=== PATIENT | female | born 1940 | race Caucasian/White ===

== ENCOUNTER 2020-06-18 16:29 | Emergency (ER) | payer OTHER, MEDICARE ==
[2020-06-18 16:46] VITALS: TEMP 98.2; BMI 22.6
[2020-06-18] MEDS ORDERED: diphenhydrAMINE HCL 25 MG CAPSULE (FP) PO ONE ×3 (17:14→17:22)
[2020-06-18] MEDS ORDERED: methylPREDNISolone NA SUCC 125 MG/2 ML VIAL IVPUSH ONE (17:14)
[2020-06-18] MEDS ORDERED: methylPREDNISolone NA SUCC 125 MG/2 ML VIAL ONE (17:19)
[2020-06-18 18:42] VITALS: BP 130/84; PULSE 86
== END 2020-06-18 18:46 | disposition home or self-care (01) ==
LOC: JERFT 16:29
PROC: 3E033NZ Introduction of Analgesics, Hypnotics, Sedatives into Peripheral Vein, Percutaneous Approach (ICD-10-PCS; principal; 2020-06-18)
DX: T78.40XA Allergy, unspecified, initial encounter (principal)
CPT/HCPCS: 99284-25

== ENCOUNTER 2020-08-24 04:42 | Day surgery (SDC) | payer OTHER, MEDICARE ==
[2020-08-24 06:48] VITALS: BMI 22.3
[2020-08-24] MEDS ORDERED: HYDROmorphone HCl 2 MG/ML VIAL ONE (07:03)
[2020-08-24] MEDS ORDERED: MIDAZOLAM HCL 2 MG/2 ML SINGLE DOSE VIAL ONE ×3 (07:03→07:12)
[2020-08-24] MEDS ORDERED: PROPOFOL 20 ML ONE (07:04)
[2020-08-24] MEDS ORDERED: ROCURONIUM BROMIDE 50 MG/5 ML SYRINGE ONE (07:04)
[2020-08-24] MEDS ORDERED: ceFAZolin SODIUM 1 GM VIAL IVPB ONE (08:15)
[2020-08-24] MEDS ORDERED: ONDANSETRON 4 MG/2 ML VIAL IVPUSH PRN ×2 (08:47→10:18)
[2020-08-24] MEDS ORDERED: oxyCODONE HCL 5 MG TABLET PO PRN ×2 (08:47)
[2020-08-24] MEDS ORDERED: ACETAMINOPHEN 1000 MG/100 ML VIAL (NON FORMULARY) IVPB ONE (08:47)
[2020-08-24] MEDS ORDERED: LACTATED RINGERS SOLUTION 1,000 ML IV SCH (09:00)
[2020-08-24] MEDS: ACETAMINOPHEN 325 MG TABLET (FP) PO SCH ×3 (09:00→21:17)
[2020-08-24] MEDS ORDERED: IBUPROFEN 800 MG/8 ML IJ IVPB PRN (10:18)
[2020-08-24] MEDS ORDERED: BISACODYL 5 MG TABLET.DR (FP) PO ONE (10:18)
[2020-08-24] MEDS ORDERED: DOCUSATE SODIUM 100 MG CAPSULE (FP) PO PRN (10:18)
[2020-08-24] MEDS ORDERED: SIMETHICONE 80 MG TAB.CHEW (FP) PO PRN (10:18)
[2020-08-24] MEDS ORDERED: LACTATED RINGERS SOLUTION 1,000 ML/1,000 ML INFUS.BAG IV SCH (10:30)
[2020-08-24] MEDS ORDERED: ACETAMINOPHEN INJECTION 100 ML IVPB ONE (11:07)
[2020-08-24] MEDS ORDERED: hydrALAZINE HCL 20 MG/ML VIAL IVPUSH ONE (11:21)
[2020-08-24 12:25] LABS: BASO % 0.4 % (0-2.0); EOS % 1.2 % (0-4.5); LYMPH % 15.7 % (8-40); MCH 28.8 pg (25.7-33.7); MCHC 33.3 g/dl (32.0-36.0); MEAN CELL VOLUME 86.3 fl (80-96); MEAN PLT VOLUME 8.3 fl (7.5-11.1); MONO % 4.2 % (3.8-10.2); NEUT % 78.5 % (42.8-82.8); PLATELET COUNT 275 K/MM3 (134-434); RBC 4.52 M/mm3 (3.60-5.2); RDW 15.1 % (11.6-15.6); WHITE BLOOD COUNT 9.5 K/mm3 (4.0-10.0)
[2020-08-24] MEDS ORDERED: CEFAZOLIN 1 GM/D5W 1 GM/50 ML BAG IVPB SCH (16:00)
[2020-08-24] MEDS: CEFAZOLIN 1 GM/D5W 1 GM/50 ML BAG IVPB SCH ×2 (16:30→23:48)
[2020-08-24 19:18] LABS: HEMOGLOBIN 12.4 GM/dL (10.7-15.3); MCH 28.9 pg (25.7-33.7); MCHC 33.6 g/dl (32.0-36.0); MEAN CELL VOLUME 86.1 fl (80-96); MEAN PLT VOLUME 8.4 fl (7.5-11.1); PLATELET COUNT 263 K/MM3 (134-434); RBC 4.29 M/mm3 (3.60-5.2); RDW 14.8 % (11.6-15.6); WHITE BLOOD COUNT 9.9 K/mm3 (4.0-10.0)
[2020-08-24 19:46] LABS: CALCIUM 8.8 mg/dL (8.5-10.1)
[2020-08-24 19:47] LABS: BLOOD UREA NITROGEN 14.7 mg/dL (7-18)
[2020-08-24 19:50] LABS: CREATININE 0.9 mg/dL (0.55-1.3)
[2020-08-24] MEDS ORDERED: ATORVASTATIN CA 10 MG TABLET (FP) PO SCH (22:00)
[2020-08-25] MEDS: ACETAMINOPHEN 325 MG TABLET (FP) PO SCH ×3 (03:29→09:46)
[2020-08-25] MEDS ORDERED: LEVOTHYROXINE NA 100 MCG TABLET (FP) PO SCH (07:00)
[2020-08-25] MEDS: CEFAZOLIN 1 GM/D5W 1 GM/50 ML BAG IVPB SCH (08:02)
[2020-08-25 08:10] LABS: CALCIUM 8.9 mg/dL (8.5-10.1)
[2020-08-25 08:14] LABS: CREATININE 0.7 mg/dL (0.55-1.3)
[2020-08-25 08:24] LABS: HEMATOCRIT 36.1 % (32.4-45.2); HEMOGLOBIN 11.9 GM/dL (10.7-15.3); MCH 28.9 pg (25.7-33.7); MCHC 32.9 g/dl (32.0-36.0); MEAN CELL VOLUME 87.7 fl (80-96); MEAN PLT VOLUME 8.3 fl (7.5-11.1); PLATELET COUNT 234 K/MM3 (134-434); RBC 4.11 M/mm3 (3.60-5.2); RDW 14.8 % (11.6-15.6); WHITE BLOOD COUNT 10.2 K/mm3 (4.0-10.0)
[2020-08-25] MEDS ORDERED: ENOXAPARIN NA (PORCINE) 40 MG/0.4 ML DISP.SYRIN SQ SCH (10:00)
[2020-08-25] MEDS ORDERED: FENOFIBRIC ACID 135 MG CAP PO SCH (10:00)
[2020-08-25 13:46] VITALS: BP 144/71; PULSE 71; TEMP 98.2
== END 2020-08-25 13:45 | disposition home or self-care (01) ==
LOC: JASUSAT 04:42 → JASU-SURG 04:42 → J3W 13:48 → JASUSAT 08-25 13:45
PROVIDERS: ATTEND Obstetrics & Gynecology
PROC: 8E0W4CZ Robotic Assisted Procedure of Trunk Region, Percutaneous Endoscopic Approach (ICD-10-PCS; 2020-08-24)
PROC: 0UT9FZZ Resection of Uterus, Via Natural or Artificial Opening With Percutaneous Endoscopic Assistance (ICD-10-PCS; principal; 2020-08-24 07:30)
PROC: 0UT7FZZ Resection of Bilateral Fallopian Tubes, Via Natural or Artificial Opening With Percutaneous Endoscopic Assistance (ICD-10-PCS; 2020-08-24 07:30)
DX: N81.4 Uterovaginal prolapse, unspecified (principal); D25.1 Intramural leiomyoma of uterus; N72 Inflammatory disease of cervix uteri; N84.1 Polyp of cervix uteri
CPT/HCPCS: 58552; S2900; 36415; 80048; 85025; 85027; 86850; 86900; 86901; 86922; 88302-TC; 88307-TC; 94010; 94760; J0131

== ENCOUNTER 2023-08-06 12:02 | Observation (INO) | payer OTHER ==
[2023-08-06 13:19] LABS: BASO % 0.6 % (0-2.0); HEMATOCRIT 44.4 % (32.4-45.2); LYMPH % 28.1 % (8-40); MCH 29.8 pg (25.7-33.7); MCHC 33.9 g/dl (32.0-36.0); MEAN PLT VOLUME 7.7 fl (7.5-11.1); MONO % 12.6 % (3.8-10.2); NEUT % 57.7 % (42.8-82.8); PLATELET COUNT 277 10^3/uL (134-434); RBC 5.04 M/mm3 (3.60-5.2); WHITE BLOOD COUNT 6.9 K/mm3 (4.0-10.0)
[2023-08-06 13:26] LABS: INR 1.16 (0.83-1.09); PROTHROMBIN TIME (PATIENT) 13.1 SEC (9.7-13.0)
[2023-08-06 13:29] LABS: ACTIVATED PTT 33.4 SECONDS (25.2-36.5)
[2023-08-06 13:38] LABS: POTASSIUM 4.9 mmol/L (3.5-5.1)
[2023-08-06 13:40] LABS: ALBUMIN 3.4 g/dl (3.4-5.0); CALCIUM 9.4 mg/dL (8.5-10.1)
[2023-08-06 13:41] LABS: BLOOD UREA NITROGEN 13.8 mg/dL (7-18)
[2023-08-06 13:43] LABS: CREATININE 0.8 mg/dL (0.55-1.3)
[2023-08-06 13:45] LABS: BILIRUBIN,TOTAL 1.8 mg/dL (0.2-1); TOT PROT 7.4 g/dl (6.4-8.2)
[2023-08-06] MEDS ORDERED: METOPROLOL TARTRATE 5 MG/5 ML VIAL ONE (13:54)
[2023-08-06] MEDS: METOPROLOL TARTRATE 5 MG/5 ML VIAL IVPUSH ONE ×2 (14:05→16:45)
[2023-08-06] MEDS: SODIUM CHLORIDE 0.9% 500 ML INFUS.BAG IV ONE (14:08)
[2023-08-06] MEDS ORDERED: METOPROLOL TARTRATE 25 MG TABLET (FP) ONE (14:43)
[2023-08-06] MEDS: METOPROLOL TARTRATE 25 MG TABLET (FP) PO ONE (14:52)
[2023-08-06] MEDS: ALPRAZolam 0.25 MG TABLET PO PRN (19:05)
[2023-08-06] MEDS: ATORVASTATIN CA 10 MG TABLET (FP) PO SCH (21:12)
[2023-08-06] MEDS: METOPROLOL TARTRATE 50 MG TABLET (FP) PO SCH (21:12)
[2023-08-06] MEDS: APIXABAN 2.5 MG TABLET PO SCH (21:13)
[2023-08-06 22:52] VITALS: BMI 24.5
[2023-08-07] MEDS: guaiFENesin 200 MG/10 ML 10 ML UNIT-DOSE CUPS PO PRN (05:41)
[2023-08-07] MEDS: LEVOTHYROXINE NA 50 MCG TABLET (FP) PO SCH (06:06)
[2023-08-07] MEDS ORDERED: LEVOTHYROXINE NA 75 MCG TABLET (FP) PO SCH (07:00)
[2023-08-07 08:59] LABS: BASO % 0.5 % (0-2.0); HEMATOCRIT 42.8 % (32.4-45.2); HEMOGLOBIN 14.5 GM/dL (10.7-15.3); LYMPH % 37.1 % (8-40); MCH 29.9 pg (25.7-33.7); MEAN CELL VOLUME 87.9 fl (80-96); MONO % 10.4 % (3.8-10.2); PLATELET COUNT 237 10^3/uL (134-434); RBC 4.86 M/mm3 (3.60-5.2); RDW 15.4 % (11.6-15.6); WHITE BLOOD COUNT 7.4 K/mm3 (4.0-10.0)
[2023-08-07 09:20] LABS: POTASSIUM 3.8 mmol/L (3.5-5.1)
[2023-08-07 09:23] LABS: ALBUMIN 3.4 g/dl (3.4-5.0); CALCIUM 9.3 mg/dL (8.5-10.1)
[2023-08-07 09:24] LABS: BLOOD UREA NITROGEN 12.4 mg/dL (7-18); MAGNESIUM 1.9 mg/dL (1.8-2.4)
[2023-08-07 09:27] LABS: CREATININE 0.7 mg/dL (0.55-1.3)
[2023-08-07 09:28] LABS: BILIRUBIN,TOTAL 2.1 mg/dL (0.2-1); TOT PROT 6.5 g/dl (6.4-8.2)
[2023-08-07 11:04] LABS: BILIRUBIN,DIRECT 0.4 mg/dL (0.0-0.2)
[2023-08-07] MEDS: FENOFIBRIC ACID 135 MG CAP PO SCH (14:50)
[2023-08-07] MEDS: METOPROLOL TARTRATE 5 MG/5 ML VIAL IVPUSH PRN (15:15)
[2023-08-08 08:27] LABS: BASO % 0.4 % (0-2.0); EOS % 2.7 % (0-4.5); HEMATOCRIT 42.6 % (32.4-45.2); HEMOGLOBIN 14.1 GM/dL (10.7-15.3); MCH 29.7 pg (25.7-33.7); MCHC 33.1 g/dl (32.0-36.0); MEAN CELL VOLUME 89.5 fl (80-96); MONO % 10.1 % (3.8-10.2); NEUT % 43.8 % (42.8-82.8); PLATELET COUNT 247 10^3/uL (134-434); RBC 4.75 M/mm3 (3.60-5.2); RDW 15.1 % (11.6-15.6); WHITE BLOOD COUNT 7.9 K/mm3 (4.0-10.0)
[2023-08-08 08:29] LABS: POTASSIUM 3.9 mmol/L (3.5-5.1)
[2023-08-08 08:41] LABS: CALCIUM 9.2 mg/dL (8.5-10.1)
[2023-08-08 08:42] LABS: MAGNESIUM 2.1 mg/dL (1.8-2.4)
[2023-08-08 08:44] LABS: BLOOD UREA NITROGEN 12.9 mg/dL (7-18); PHOSPHOROUS 3.1 mg/dL (2.5-4.9)
[2023-08-08 08:45] LABS: ALBUMIN 3.4 g/dl (3.4-5.0); BILIRUBIN,TOTAL 2.2 mg/dL (0.2-1); CREATININE 0.7 mg/dL (0.55-1.3); TOT PROT 6.8 g/dl (6.4-8.2)
[2023-08-09 06:36] LABS: BASO % 0.5 % (0-2.0); EOS % 3.2 % (0-4.5); HEMOGLOBIN 14.6 GM/dL (10.7-15.3); LYMPH % 44.6 % (8-40); MCH 30.6 pg (25.7-33.7); MCHC 34.8 g/dl (32.0-36.0); MEAN CELL VOLUME 87.8 fl (80-96); MEAN PLT VOLUME 7.8 fl (7.5-11.1); MONO % 10.8 % (3.8-10.2); NEUT % 40.9 % (42.8-82.8); PLATELET COUNT 240 10^3/uL (134-434); RBC 4.79 M/mm3 (3.60-5.2); RDW 14.6 % (11.6-15.6); WHITE BLOOD COUNT 7.4 K/mm3 (4.0-10.0)
[2023-08-09 06:47] LABS: POTASSIUM 4.2 mmol/L (3.5-5.1)
[2023-08-09 06:49] LABS: CALCIUM 9.6 mg/dL (8.5-10.1)
[2023-08-09 06:50] LABS: ALBUMIN 3.4 g/dl (3.4-5.0); BLOOD UREA NITROGEN 11.7 mg/dL (7-18); MAGNESIUM 1.9 mg/dL (1.8-2.4)
[2023-08-09 06:52] LABS: PHOSPHOROUS 3.2 mg/dL (2.5-4.9)
[2023-08-09 06:53] LABS: CREATININE 0.8 mg/dL (0.55-1.3)
[2023-08-09 06:54] LABS: BILIRUBIN,TOTAL 1.7 mg/dL (0.2-1); TOT PROT 6.8 g/dl (6.4-8.2)
[2023-08-09] MEDS: ALPRAZolam 0.25 MG TABLET PO PRN (22:29)
[2023-08-10 06:40] LABS: BASO % 0.6 % (0-2.0); EOS % 3.1 % (0-4.5); HEMATOCRIT 40.2 % (32.4-45.2); HEMOGLOBIN 13.9 GM/dL (10.7-15.3); LYMPH % 46.1 % (8-40); MCH 30.4 pg (25.7-33.7); MCHC 34.6 g/dl (32.0-36.0); MEAN CELL VOLUME 87.8 fl (80-96); MEAN PLT VOLUME 7.9 fl (7.5-11.1); MONO % 10.3 % (3.8-10.2); NEUT % 39.9 % (42.8-82.8); PLATELET COUNT 239 10^3/uL (134-434); RBC 4.57 M/mm3 (3.60-5.2); RDW 14.6 % (11.6-15.6); WHITE BLOOD COUNT 8.1 K/mm3 (4.0-10.0)
[2023-08-10 06:46] LABS: POTASSIUM 4.3 mmol/L (3.5-5.1)
[2023-08-10 06:55] LABS: ALBUMIN 3.4 g/dl (3.4-5.0); BLOOD UREA NITROGEN 10.6 mg/dL (7-18); CALCIUM 9.6 mg/dL (8.5-10.1); MAGNESIUM 1.8 mg/dL (1.8-2.4)
[2023-08-10 06:59] LABS: CREATININE 0.8 mg/dL (0.55-1.3)
[2023-08-10 07:01] LABS: BILIRUBIN,TOTAL 1.6 mg/dL (0.2-1); TOT PROT 6.4 g/dl (6.4-8.2)
[2023-08-10 11:04] VITALS: BP 125/71; PULSE 91; RESP 16; TEMP 97.9
== END 2023-08-10 11:12 | disposition home or self-care (01) ==
LOC: JER 12:02 → JERBED 16:33 → J4S 20:28
PROVIDERS: ADMIT Internal Medicine; ATTEND Internal Medicine
PROC: 3E033GC Introduction of Other Therapeutic Substance into Peripheral Vein, Percutaneous Approach (ICD-10-PCS; principal; 2023-08-06)
PROC: 3E0337Z Introduction of Electrolytic and Water Balance Substance into Peripheral Vein, Percutaneous Approach (ICD-10-PCS; 2023-08-06)
DX: I48.92 Unspecified atrial flutter (principal); I48.91 Unspecified atrial fibrillation; I10 Essential (primary) hypertension; E03.9 Hypothyroidism, unspecified; F41.9 Anxiety disorder, unspecified
CPT/HCPCS: 0241U-QW; 36415; 71046-TC-FY; 80053; 82248; 83735; 84100; 84439; 84443; 84484; 85025; 85610; 85730; 93005; 93010; 93306-TC; 96374; 96376; 97116-GP; 97161-GP; 99285-25; G0378

== ENCOUNTER 2024-07-08 05:57 | Day surgery (SDC) | payer OTHER ==
[2024-07-02 15:04] VITALS: BMI 24.1
[2024-07-08 12:35] VITALS: RESP 18; TEMP 97.6
[2024-07-08 12:50] VITALS: BP 132/68; PULSE 73
== END 2024-07-08 13:15 | disposition home or self-care (01) ==
LOC: JASU-ENDO 05:57
PROVIDERS: ATTEND Internal Medicine Gastroenterology
PROC: 0DBN8ZX Excision of Sigmoid Colon, Via Natural or Artificial Opening Endoscopic, Diagnostic (ICD-10-PCS; principal; 2024-07-08 10:15)
DX: D12.5 Benign neoplasm of sigmoid colon (principal); K57.30 Diverticulosis of large intestine without perforation or abscess without bleeding; K64.8 Other hemorrhoids
CPT/HCPCS: 88305-TC